=== PATIENT | female | born 1985 | race Caucasian/White ===

== ENCOUNTER 2018-08-04 23:12 | Emergency (ER) | payer BC ==
[~2018-08-04] VITALS: Ht 160 cm; Wt 111.4 kg
[~2018-08-04 23:12] MED LIST: AFRIN 15 ML15 ML NS; GLUCOPHAGE1000 MG PO; LEVEMIR FLEXPEN SC; LORTAB 5/500 501 TAB PO; METFORMIN HCL500 M1 PO; MOTRIN 600600 MG/TAB PO; Metformin PO; NORCO 325 MG-51 TAB PO; PRENATAL VITAMI1 TA5 PO; PROMETRIUM100 MG/CAP PO; PROMETRIUM200 MG; SYNTHROID 0.0.025 MG PO; SYNTHROID0.125 MG/T PO; [UNRECOGNIZED DRUG - OTHER]
[2018-08-04 23:16] VITALS: TEMP 97.2
[2018-08-05 00:02] LABS: BASO % 0.2 % (0.0-2.0); EOS # 0.1 (0.0-0.7); EOS % 2.5 % (0-4.0); GRAN # 1.9 (1.4-6.5); HEMATOCRIT 41.5 % (37.0-47.0); HEMOGLOBIN 14.5 g/dl (12.5-16.0); LYMPH # 2.3 (1.2-3.4); LYMPH % 47.4 % (20.0-51.0); MEAN CELL VOLUME 81 fl (80.0-100.0); MEAN CORPUSCULAR HEMOGLOBIN 28 pg (27.0-31.0); MEAN CORPUSCULAR HGB CONC 35 g/dl (33.0-37.0); MONO # 0.5 (0.1-0.6); MONO % 9.5 % (1.7-9.3); PLATELET COUNT 237 K/mm3 (130-400); RED BLOOD COUNT 5.13 M/mm3 (4.10-5.30); REDCELL DISTRIBUTION WIDTH-CV 12.8 % (11.5-14.5)
[2018-08-05 00:18] LABS: ALANINE AMINOTRANSFERASE 72 U/L (9-52); ALBUMIN 4.4 gm/dL (3.5-5.0); ALKALINE PHOSPHATASE 68 U/L (50-136); ANION GAP 12 mmol/L (7-16); AST,SGOT 43 U/L (15-37); BILIRUBIN,TOTAL 1.1 mg/dL (0.0-1.0); BLOOD UREA NITROGEN 13 mg/dL (7-17); CALCIUM 9.3 mg/dL (8.4-10.2); CARBON DIOXIDE 22 mmol/L (22-30); CHLORIDE 105 mmol/L (98-107); CREATININE, serum 0.76 (0.52-1.25); GLUCOSE 149 mg/dL (74-106); LIPASE 105 U/L (23-300); POTASSIUM 3.8 mmol/L (3.4-5.0); SODIUM 139 mmol/L (137-145); TOTAL PROTEIN 7.9 gm/dL (6.4-8.2)
[2018-08-05 00:36] LABS: TROPONIN-I < 0.012 ng/mL (0.000-0.035)
[2018-08-05] MEDS ORDERED: LEVOXYL0.1 MG PO (00:36)
[2018-08-05 01:31] VITALS: BP 143/84
[2018-08-05 01:55] VITALS: PULSE 75
== END 2018-08-05 01:55 | disposition home or self-care (01) ==
LOC: COL.ER 23:12
PROVIDERS: Emergency Medicine
DX: J10.1 Influenza due to other identified influenza virus with other respiratory manifestations (principal); J40 Bronchitis, not specified as acute or chronic; E03.9 Hypothyroidism, unspecified; Z98.890 Other specified postprocedural states
CPT/HCPCS: J2405; J7030

== ENCOUNTER 2018-11-22 21:03 | Inpatient (IN) | payer BC, OTHER ==
[~2018-11-22] VITALS: Ht 160 cm; Wt 119.7 kg
[~2018-11-22 21:03] MED LIST changes: +LEVOXYL0.1 MG PO
[2018-11-22 22:05] LABS: COLLECTION METHOD CLEAN CATCH
[2018-11-22 22:11] LABS: PH 8 (5-8); SQUAMOUS EPITHELIAL 0-2 /hpf; URINE APPEARANCE Clear; URINE BACTERIA None Seen /hpf; URINE BILIRUBIN Negative (NEGATIVE); URINE BLOOD Negative (NEGATIVE); URINE COLOR Amber; URINE GLUCOSE Negative (NEGATIVE); URINE KETONE Negative (NEGATIVE); URINE LEUKOCYTE ESTERASE Negative (NEGATIVE); URINE NITRATE Negative (NEGATIVE); URINE PROTEIN(semi-quant) Negative (NEGATIVE); URINE RBC 0-2 /hpf
[2018-11-22 23:14] LABS: BASO % 0.4 % (0.0-2.0); EOS # 0.1 (0.0-0.7); EOS % 0.6 % (0-4.0); GRAN # 6.3 (1.4-6.5); GRAN % 64.9 % (42.2-75.2); HEMATOCRIT 44.8 % (37.0-47.0); HEMOGLOBIN 15.4 g/dl (12.5-16.0); LYMPH # 2.6 (1.2-3.4); LYMPH % 26.9 % (20.0-51.0); MEAN CELL VOLUME 82 fl (80.0-100.0); MEAN CORPUSCULAR HEMOGLOBIN 28 pg (27.0-31.0); MEAN CORPUSCULAR HGB CONC 34 g/dl (33.0-37.0); MEAN PLATELET VOLUME 9.8 fl (7.4-10.4); MONO # 0.7 (0.1-0.6); MONO % 6.8 % (1.7-9.3); PLATELET COUNT 345 K/mm3 (130-400)
[2018-11-22 23:27] LABS: ALBUMIN 4.7 gm/dL (3.5-5.0); BILIRUBIN,TOTAL 5.1 mg/dL (0.0-1.0); C-REACTIVE PROTEIN 0.6 mg/dL (0.0-0.9); CALCIUM 9.7 mg/dL (8.4-10.2); CREATININE, serum 0.87 (0.52-1.25); POTASSIUM 4.1 mmol/L (3.4-5.0); TOTAL PROTEIN 8.6 gm/dL (6.4-8.2)
--- NOTE | 2018-11-23 02:03 | NUR ---
Report received from Maria Dolores WHIPPLE. Patient admitted via ER cart accompanied by Maria Dolores WHIPPLE and patients to room 341. Patient ambulates short distance to bed. Patient alert and oriented x 4. Reports pain 4-5/10 to RUQ was dull but getting a little sharp. Oriented to room and call light. Gown applied. See admission assessment form. Zofran given for nausea, no emesis followed by dilaudid for pain. Handouts of lap napoleon, cipro, flagyl, and dilaudid given.
[2018-11-23 02:09] VITALS: BP 154/91; PULSE 56; TEMP 98.1
--- NOTE | 2018-11-23 03:45 | NUR ---
Patient now rests with eyes closed. Respirations with ease.
--- NOTE | 2018-11-23 05:10 | NUR ---
Patient awakened briefly when nurse into hang IV Cipro. Returned to resting with eyes closed.
[2018-11-23 06:24] VITALS: BP 142/94; PULSE 63; TEMP 98.3
--- NOTE | 2018-11-23 06:30 | NUR ---
DR. ESCOBEDO NOTIFIED OF PATIENTS ITCHING AND A FEW HIVES RIGHT ARM/HAND. NEW ORDERS RECEIVED AND BENADRYL IV REVIEWED AND GIVEN. STATES HER HAND IS NO LONGER BURNING SINCE CIPRO STOPPED.
--- NOTE | 2018-11-23 06:33 | NUR ---
Patient started itching and hive on right inner hand thumb side and below right antecubital. Cipro stopped for now. Dilaudid given for abdomimal right upper quad and right hand "hurting". IV site right hand with good blood return.
[2018-11-23 07:24] LABS: HEMATOCRIT 40.1 % (37.0-47.0); HEMOGLOBIN 13.6 g/dl (12.5-16.0); MEAN CELL VOLUME 83 fl (80.0-100.0); MEAN CORPUSCULAR HEMOGLOBIN 28 pg (27.0-31.0); MEAN CORPUSCULAR HGB CONC 34 g/dl (33.0-37.0); MEAN PLATELET VOLUME 9.4 fl (7.4-10.4); PLATELET COUNT 280 K/mm3 (130-400); RED BLOOD COUNT 4.84 M/mm3 (4.10-5.30); REDCELL DISTRIBUTION WIDTH-CV 13.2 % (11.5-14.5)
[2018-11-23 07:34] LABS: ALBUMIN 3.7 gm/dL (3.5-5.0); BILIRUBIN,TOTAL 3.8 mg/dL (0.0-1.0); CALCIUM 8.6 mg/dL (8.4-10.2); CREATININE, serum 0.94 (0.52-1.25); TOTAL PROTEIN 6.7 gm/dL (6.4-8.2)
[2018-11-23 07:53] LABS: LYMPHOCYTE 24 % (20.0-51.0); NEUTROPHILS 70 % (42.0-75.2); PLATELET ESTIMATE NORMAL (NORMAL)
--- NOTE | 2018-11-23 08:00 | NUR ---
States abdominal pain is better after medication. Hives and burning in arm relieved. IV fluids infusing. NPO. Voiding josr urine.
--- NOTE | 2018-11-23 11:15 | NUR ---
Medicated with Zofran for nausea and Dilaudid for abdominal pain.
[2018-11-23 12:32] VITALS: BP 142/88; PULSE 61; TEMP 98.4
--- NOTE | 2018-11-23 13:00 | NUR ---
Dr. Argueta talked with patient and spouse. Started on low fat diet.
--- NOTE | 2018-11-23 15:00 | NUR ---
Complained of nausea after eating food. No c/o pain.
--- NOTE | 2018-11-23 15:14 | NUR ---
Plan: Plans to return home with Nehemiah . Assess: SW met with patient in room with , okay with talking in front of spouse. Patient reports that she does not use any DME in home. Patient reports that she and her spouse live locally. Patient reports PCP as Dr. Mccallum and the use of [facility] for RX. Patient does not have a DPOA but has her mother apart of her care plan Alayna ruelasjack . will transport home. Client reports some concerns. ACtion: Sw relayed concerns to nurse. No additonal concerns.
[2018-11-23 16:21] VITALS: BP 126/85; PULSE 56; TEMP 97.7
--- NOTE | 2018-11-23 18:00 | NUR ---
Sleeping on side. Spouse at bedside.
--- NOTE | 2018-11-23 19:00 | NUR ---
Report received. Assumed care for communications project lead. Assessment complete. VS stable. at bedside. Plan of care discussed for this shift. C/O pain to right upper quadrant rating 7/10. Also c/o nausea with no emesis. Medicated with dilaudid and zofran per order. Denies needs at this time. Will monitor.
[2018-11-23 20:32] VITALS: BP 142/74; PULSE 55; TEMP 98.8
[2018-11-23 23:40] VITALS: BP 154/79; PULSE 67; TEMP 97.6
[2018-11-24] VITALS (12 sets, daily range): BP systolic 110–178; BP diastolic 65–100; PULSE 57–73; TEMP 98.1–98.9
[2018-11-24 05:52] LABS: BASO % 0.3 % (0.0-2.0); EOS # 0.1 (0.0-0.7); EOS % 1.4 % (0-4.0); GRAN # 4.2 (1.4-6.5); HEMATOCRIT 40.2 % (37.0-47.0); HEMOGLOBIN 13.2 g/dl (12.5-16.0); LYMPH # 1.9 (1.2-3.4); LYMPH % 27.9 % (20.0-51.0); MEAN CELL VOLUME 83 fl (80.0-100.0); MEAN CORPUSCULAR HEMOGLOBIN 27 pg (27.0-31.0); MEAN CORPUSCULAR HGB CONC 33 g/dl (33.0-37.0); MEAN PLATELET VOLUME 9.8 fl (7.4-10.4); MONO # 0.5 (0.1-0.6); MONO % 6.9 % (1.7-9.3); PLATELET COUNT 274 K/mm3 (130-400); RED BLOOD COUNT 4.82 M/mm3 (4.10-5.30); REDCELL DISTRIBUTION WIDTH-CV 13.2 % (11.5-14.5)
[2018-11-24 06:04] LABS: ALBUMIN 3.6 gm/dL (3.5-5.0); BILIRUBIN,TOTAL 4.5 mg/dL (0.0-1.0); CALCIUM 8.4 mg/dL (8.4-10.2); CREATININE, serum 1.08 (0.52-1.25); POTASSIUM 4.2 mmol/L (3.4-5.0); TOTAL PROTEIN 6.6 gm/dL (6.4-8.2)
[2018-11-24 06:06] LABS: INR 1.1 (0.8-3.0); PROTHROMBIN TIME 12.3 SECONDS (9.7-12.8)
--- NOTE | 2018-11-24 06:20 | NUR ---
C/O pain to right upper quadrant rating 6/10. Dilaudid given per dr order. Will monitor.
--- NOTE | 2018-11-24 09:30 | NUR ---
Patient alert and oriented, answers questions appropriately. See assessment. Abdomen soft, non tender, non distended. Bowel sounds active x4 quads. +Flatus. C/o abdominal pain 3/10. No other c/o at this time.
--- NOTE | 2018-11-24 20:30 | NUR ---
Patient arrived to floor from PACU via bed at approximately 1920. Patient is sleepy but rouses easily and answers questions appropriately. Four lap sites to abdomen are well approximated. Post op checks initiated. Patient is hypertensive at this time. Recieved an order for IV hydralazine PRN and it was given by charge nurse. Patient denies needs at this time, will continue to monitor closely.
[2018-11-25] VITALS (7 sets, daily range): BP systolic 120–160; BP diastolic 72–94; PULSE 56–78; TEMP 97.7–98.7
--- NOTE | 2018-11-25 05:50 | NUR ---
Patient has rested intermittently overnight. Patient is up with 1x assist to bathroom, voiding well. Patient continues to have abdominal pain, but it is better controlled this morning. BP has come down overnight. Patient denies needs at this time, call light within reach.
[2018-11-25 07:11] LABS: BASO % 0.3 % (0.0-2.0); EOS % 0.1 % (0-4.0); GRAN # 9.1 (1.4-6.5); GRAN % 84.4 % (42.2-75.2); HEMATOCRIT 40.2 % (37.0-47.0); HEMOGLOBIN 13.4 g/dl (12.5-16.0); LYMPH # 0.9 (1.2-3.4); LYMPH % 8.3 % (20.0-51.0); MEAN CELL VOLUME 84 fl (80.0-100.0); MEAN CORPUSCULAR HEMOGLOBIN 28 pg (27.0-31.0); MEAN CORPUSCULAR HGB CONC 33 g/dl (33.0-37.0); MEAN PLATELET VOLUME 10.6 fl (7.4-10.4); MONO # 0.7 (0.1-0.6); MONO % 6.1 % (1.7-9.3); PLATELET COUNT 283 K/mm3 (130-400); RED BLOOD COUNT 4.79 M/mm3 (4.10-5.30); REDCELL DISTRIBUTION WIDTH-CV 13.5 % (11.5-14.5)
[2018-11-25 07:22] LABS: ALBUMIN 3.7 gm/dL (3.5-5.0); BILIRUBIN,TOTAL 5.6 mg/dL (0.0-1.0); CALCIUM 8.2 mg/dL (8.4-10.2); CREATININE, serum 0.88 (0.52-1.25); POTASSIUM 3.7 mmol/L (3.4-5.0); TOTAL PROTEIN 6.8 gm/dL (6.4-8.2)
--- NOTE | 2018-11-25 09:30 | NUR ---
Patient alert and oriented, answers questions appropriately. See assessment. Abdomen soft, non tender, non distended. +Flatus. Bowel sounds audible x4 quads. Abdomen lap sites with edges well approximated, no redness or drainage noted. Post op exercises reviewed. C/o pain 2/10 to abdomen. No other c/o at this time.
--- NOTE | 2018-11-25 10:05 | NUR ---
Initial visit; Patient thanked [employer] Advanced Operator Maintainer for offering God's blessings and for letting her know that she will be offered Holy Communion during her stay with us at [facility].
[2018-11-26 04:22] VITALS: BP 129/74; PULSE 72; TEMP 98.2
--- NOTE | 2018-11-26 05:00 | NUR ---
Patient ambulated independently in the halls with family yesterday eveinging. Patient requested one PRN pain pill at HS for abdominal tenderness. Lap sites remain well approximated. Patient denies needs at this time, call light within reach.
[2018-11-26 07:09] LABS: BASO % 0.3 % (0.0-2.0); EOS # 0.1 (0.0-0.7); EOS % 2.3 % (0-4.0); GRAN # 3.5 (1.4-6.5); GRAN % 61.6 % (42.2-75.2); HEMOGLOBIN 13.1 g/dl (12.5-16.0); LYMPH # 1.6 (1.2-3.4); LYMPH % 27.2 % (20.0-51.0); MEAN CELL VOLUME 84 fl (80.0-100.0); MEAN CORPUSCULAR HEMOGLOBIN 28 pg (27.0-31.0); MEAN CORPUSCULAR HGB CONC 34 g/dl (33.0-37.0); MEAN PLATELET VOLUME 10.5 fl (7.4-10.4); MONO # 0.4 (0.1-0.6); MONO % 7.7 % (1.7-9.3); PLATELET COUNT 248 K/mm3 (130-400); RED BLOOD COUNT 4.63 M/mm3 (4.10-5.30); REDCELL DISTRIBUTION WIDTH-CV 13.8 % (11.5-14.5)
[2018-11-26 07:29] LABS: ALBUMIN 3.5 gm/dL (3.5-5.0); BILIRUBIN,TOTAL 4.5 mg/dL (0.0-1.0); CALCIUM 8.2 mg/dL (8.4-10.2); CREATININE, serum 0.76 (0.52-1.25); POTASSIUM 3.7 mmol/L (3.4-5.0); TOTAL PROTEIN 6.6 gm/dL (6.4-8.2)
[2018-11-26 08:35] VITALS: BP 140/87; PULSE 57; TEMP 97.7
[2018-11-26 12:09] VITALS: BP 137/76; PULSE 69; TEMP 98
[2018-11-26 16:22] VITALS: BP 129/88; PULSE 79; TEMP 98.5
[2018-11-26 19:30] VITALS: BP 153/81; PULSE 65; TEMP 98.7
--- NOTE | 2018-11-26 21:00 | NUR ---
Patient rests in bed, around bedside and very attentive. Patient reports minimal pain at this time and incisions well approximated just light redness to distal mid 2 incisions noted and mild bruising. Nolan reviewed and given and handout of ERCP given. Patient reports the anesthesiologist ok'd a CLD until 0900 tomorrow am but order just reads NPO. Dr. Dorsey notified of above and new orders recieved to enter ERCP standing orders and patient may have CLD until 0800 am. Patient states passing gas and had bm today and voiding WNL. Reviewed Dr. Dorsey stated procedure will be around 2 pm 11/27.
[2018-11-26 23:35] VITALS: BP 131/71; PULSE 63; TEMP 98.3
[2018-11-27] VITALS (12 sets, daily range): BP systolic 138–160; BP diastolic 76–90; PULSE 51–72; TEMP 97.5–98.6
--- NOTE | 2018-11-27 05:51 | NUR ---
Patient reports had a pretty good night. Awakened patient for ibuprofen-given with crackers. Reports minimal pain at this time.
[2018-11-27 08:07] LABS: BASO % 0.3 % (0.0-2.0); EOS # 0.2 (0.0-0.7); EOS % 2.9 % (0-4.0); GRAN # 3.7 (1.4-6.5); HEMATOCRIT 41.1 % (37.0-47.0); HEMOGLOBIN 13.8 g/dl (12.5-16.0); LYMPH # 1.4 (1.2-3.4); LYMPH % 23.3 % (20.0-51.0); MEAN CELL VOLUME 83 fl (80.0-100.0); MEAN CORPUSCULAR HEMOGLOBIN 28 pg (27.0-31.0); MEAN CORPUSCULAR HGB CONC 34 g/dl (33.0-37.0); MONO # 0.5 (0.1-0.6); MONO % 8.1 % (1.7-9.3); PLATELET COUNT 264 K/mm3 (130-400); RED BLOOD COUNT 4.96 M/mm3 (4.10-5.30); REDCELL DISTRIBUTION WIDTH-CV 13.5 % (11.5-14.5)
[2018-11-27 08:18] LABS: ALBUMIN 3.6 gm/dL (3.5-5.0); BILIRUBIN,TOTAL 3.8 mg/dL (0.0-1.0); CALCIUM 8.5 mg/dL (8.4-10.2); CREATININE, serum 0.74 (0.52-1.25); TOTAL PROTEIN 6.9 gm/dL (6.4-8.2)
--- NOTE | 2018-11-27 09:19 | NUR ---
GIBSON Roblero reports that pt had large hard stool and it gave her hemorrhoids, however, pt not concerned at this time.
--- NOTE | 2018-11-27 13:10 | NUR ---
at bedside, pt's five lap sites CDI, glued, edges approximated, light redness to umbilical and lower right sites, no swelling, no drainage.
--- NOTE | 2018-11-27 13:42 | NUR ---
Report to Katherine, ignacia op, and Ethan with AA. Pt to cart after voiding and clean gown and oral cares. NPO prior to MN. Verified home meds. Preop checklist complete in computer, H&P in computer. followed pre-op staff.
--- NOTE | 2018-11-27 16:23 | NUR ---
Bedside Report to SOLE Schroeder.
--- NOTE | 2018-11-27 16:27 | NUR ---
INT'd pt d/t BP high, prn apresoline given, pt reports headache, Nehemiah at bedside. SCDs to BLE. Pt flor ice chips, jello, and applesauce
[2018-11-27] MEDS ORDERED: PERCOCET 325 MG1 TA2 PO (17:02)
[2018-11-27] MEDS ORDERED: MOTRIN 600600 MG/TAB PO (17:02)
[2018-11-27] MEDS ORDERED: AMOXICILLIN 8751 TAB PO (17:02)
[2018-11-27] MEDS ORDERED: ZOFRAN ODT4 MG PO (17:03)
--- NOTE | 2018-11-27 18:36 | NUR ---
Patient in bed resting. Spouse at bedside. Was given zofran due to nausea after apresoline administration. Dr. Argueta was in to see patient states she will still be able to discharge this afternoon. Was able to tolerate oral intake after zofran administration. Denies pain or further needs at this time. Will report off to core sucker.
--- NOTE | 2018-11-27 19:43 | NUR ---
Report received from SOLE Schroeder. Discharge instructions and education went over with patient and . Questions and concerns answered. All belongings with patient including prescriptions. Patient assisted to personal vehicle via wheelchair by surgical staff at 1930.
== END 2018-11-27 19:30 | disposition home or self-care (01) | DRG 419 ==
LOC: COL.ER 21:03 → SURG 11-23 01:17
PROVIDERS: Emergency Medicine; Physician Assistant; ADMIT Surgery
PROC: 8E0W4CZ Robotic Assisted Procedure of Trunk Region, Percutaneous Endoscopic Approach (ICD-10-PCS; 2018-11-24)
PROC: 0FT44ZZ Resection of Gallbladder, Percutaneous Endoscopic Approach (ICD-10-PCS; principal; 2018-11-24 15:30)
PROC: 0FC98ZZ Extirpation of Matter from Common Bile Duct, Via Natural or Artificial Opening Endoscopic (ICD-10-PCS; 2018-11-25)
PROC: BF111ZZ Fluoroscopy of Biliary and Pancreatic Ducts using Low Osmolar Contrast (ICD-10-PCS; 2018-11-25)
DX: K80.63 Calculus of gallbladder and bile duct with acute cholecystitis with obstruction (principal); I10 Essential (primary) hypertension; E06.3 Autoimmune thyroiditis; E28.2 Polycystic ovarian syndrome
CPT/HCPCS: C1769; G0378; J0360; J0744; J1170; J1200; J1650; J2270; J2405; J2543; J2550; J2704; J3010; J7030; J7120; Q9967

== ENCOUNTER → 2022-06-18 | Outpatient (CLI) | payer BC, OTHER ==
[~2022-06-18] MED LIST changes: +AMOXICILLIN 8751 TAB PO; +ASPIRIN 81M81 MG/TA2 PO; +LIPITOR 40MG TA40 MG PO; +PERCOCET 325 MG1 TA2 PO; +PLAVIX 75MG TAB75 MG PO; +ZESTRIL 10MG10 MG PO; +ZOFRAN ODT4 MG PO
[2022-06-18 13:43] LABS: COLLECTION METHOD CLEAN CATCH
[2022-06-18 13:49] LABS: BASO # 0.1 K/mm3 (0.0-0.2); BASO % 0.5 % (0.0-2.0); EOS % 0.2 % (0.0-4.0); GRAN # 7.6 K/mm3 (1.4-6.5); GRAN % 72.2 % (42.2-75.2); HEMATOCRIT 44.9 % (37.0-47.0); HEMOGLOBIN 15.5 g/dl (12.5-16.0); LYMPH # 2.2 K/mm3 (1.2-3.4); MEAN CELL VOLUME 81 fl (80.0-100.0); MEAN CORPUSCULAR HEMOGLOBIN 28 pg (27-31); MEAN CORPUSCULAR HGB CONC 35 g/dl (33.0-37.0); MEAN PLATELET VOLUME 9.5 fl (7.4-10.4); MONO # 0.6 K/mm3 (0.1-0.6); MONO % 5.6 % (1.7-9.3); PLATELET COUNT 395 K/mm3 (130-400); RED BLOOD COUNT 5.54 M/mm3 (4.10-5.30)
[2022-06-18 14:03] LABS: ALBUMIN 4.4 gm/dL (3.5-5.0); BILIRUBIN,TOTAL 0.7 mg/dL (0.2-1.2); C-REACTIVE PROTEIN 0.24 mg/dL (0.00-0.50); CALCIUM 9.8 mg/dL (8.4-10.2); CREATININE, serum 0.94 mg/dL (0.57-1.11); POTASSIUM 3.8 mmol/L (3.5-4.5); TOTAL PROTEIN 8.2 gm/dL (6.2-8.1)
[2022-06-18 14:21] LABS: ERYTHROCYTE SEDIMENTATION RATE 7 mm/hr (0-20)
[2022-06-18 14:22] LABS: URINE APPEARANCE Clear (CLEAR/HAZY); URINE BLOOD Negative (NEGATIVE); URINE COLOR Yellow (YELLOW); URINE GLUCOSE Negative (NEGATIVE); URINE KETONE Negative (NEGATIVE); URINE NITRATE Negative (NEGATIVE); URINE PROTEIN(semi-quant) Negative (NEGATIVE); URINE UROBILINOGEN 0.2 E.U/dL (0.2-1.0)
[2022-06-18 14:22] LABS: THYROID STIMULATING HORMONE 1.926 uIU/mL (0.350-4.940)
[2022-06-18 14:25] LABS: MUCOUS Present (NOT PRESENT); URINE BACTERIA None Seen /hpf (NONE SEEN); URINE RBC None Seen /hpf (0-2)
== END ==
LOC: COL.LAB 12:59
PROVIDERS: Physician Assistant Medical
DX: M62.81 Muscle weakness (generalized) (principal); E03.9 Hypothyroidism, unspecified